=== PATIENT | male | born 1990 | race Caucasian/White ===

== ENCOUNTER 2022-10-20 20:22 | Emergency (ER) | payer OTHER ==
[~2022-10-20] VITALS: Ht 182.9 cm; Wt 84.5 kg
[2022-10-20 20:49] LABS: BASOPHILS 0.3 % (0-2); EOSINOPHILS 1.6 % (0-6); HEMATOCRIT 40.4 % (35.0-50.0); HEMOGLOBIN 13.6 g/dL (12.0-18.0); LYMPHOCYTES 16.5 % (24-44); MCH 33.8 (27-36); MCHC 33.7 g/dl (30-36); MCV 100.3 fl (81-99); MONOCYTES 5.6 % (0-12); PLATELET COUNT 291 K/uL (140-440); RBC 4.03 M/ul (4.3-5.7); RDW 13.1 (10.5-15.0)
[2022-10-20 21:04] LABS: ALBUMIN 4.4 g/dL (3.4-5.0); ALBUMIN/GLOBULIN RATIO 1.26 (1.1-2.4); BILIRUBIN, TOTAL 0.3 ng/dL (0.2-1.0); BUN/CREATININE RATIO 8.69 (6.0-28.6); CALCIUM 8.8 mg/dL (8.5-10.1); CREATININE, SERUM 1.15 mg/dL (0.70-1.30); PROTEIN, TOTAL 7.9 g/dL (6.4-8.2)
[2022-10-20 21:23] LABS: ABO O; ANTIBODY SCREEN NEGATIVE; RH NEGATIVE
[2022-10-20 21:27] LABS: BILIRUBIN, URINE NEGATIVE (negative); BLOOD/HGB, URINE NEGATIVE (Negative); KETONE, URINE NEGATIVE (Negative); LEUK ESTERASE, URINE NEGATIVE (negative); NITRITE, URINE NEGATIVE (negative)
[2022-10-20 21:28] LABS: AMPHETAMINES, UR NEGATIVE (NEGATIVE); BARBITURATES, UR NEGATIVE (NEGATIVE); BENZODIAZEPINES, UR NEGATIVE (NEGATIVE); BUPRENORPHINE,UR NEGATIVE (NEGATIVE); COCAINE, UR NEGATIVE (NEGATIVE); MARIJUANA (THC), UR NEGATIVE (NEGATIVE); MDMA, UR NEGATIVE (NEGATIVE); METHADONE, UR NEGATIVE (NEGATIVE); METHAMPHETAMINE, UR NEGATIVE (NEGATIVE); OPIATES, UR NEGATIVE (NEGATIVE); OXYCODONE, UR NEGATIVE (NEGATIVE); PHENCYCLIDINE, UR NEGATIVE (NEGATIVE); TRICYCLIC ANTIDEPRESSANT, UR NEGATIVE (NEGATIVE)
[2022-10-20] MEDS ORDERED: HYDROCODON-ACE1 EA10 PO (22:33)
[2022-10-20] MEDS ORDERED: CEPHALEXIN500 M1 PO (22:36)
[2022-10-20 22:50] VITALS: BP 136/87
== END 2022-10-20 22:50 | disposition home or self-care (01) ==
LOC: ED 20:22
PROVIDERS: Family Medicine
DX: S92.511B Displaced fracture of proximal phalanx of right lesser toe(s), initial encounter for open fracture (principal); S91.311A Laceration without foreign body, right foot, initial encounter; S00.03XA Contusion of scalp, initial encounter; S50.812A Abrasion of left forearm, initial encounter; S20.411A Abrasion of right back wall of thorax, initial encounter; V86.55XA Driver of 3- or 4- wheeled all-terrain vehicle (ATV) injured in nontraffic accident, initial encounter; Z79.899 Other long term (current) drug therapy
CPT/HCPCS: 36415; 70450; 72125; 73130; 73630; 80053; 81003; 85025; 86850; 86900; 86901; 90715; G0480; J7121